=== PATIENT | female | born 1960 | race Caucasian/White ===

== ENCOUNTER 2021-09-14 06:37 | Day surgery (SDC) | payer OTHER ==
[~2021-09-14] VITALS: Ht 172.7 cm; Wt 125.8 kg
[2021-09-14] MEDS ORDERED: METF500 (07:12)
[2021-09-14] MEDS ORDERED: OZEMPIC0.25 MG/0. (07:12)
[2021-09-14] MEDS ORDERED: TOUJEO SOL300 UNIT/2 (07:12)
[2021-09-14] MEDS ORDERED: LEVSOD100 (07:13)
[2021-09-14] MEDS ORDERED: Crestor20 MG (07:13)
[2021-09-14] MEDS ORDERED: Prinivil10 MG (07:13)
--- NOTE | 2021-09-14 08:26 | NUR ---
09/14/21 0812 Richelle Zapata ([place] 0825: SCOPE OUT, SWITCHED TO [facility]
== END 2021-09-14 09:37 | disposition home or self-care (01) ==
LOC: ORSCSDS 06:37
PROVIDERS: Student in an Organized Health Care Education/Training Program
PROC: 0DBL8ZX Excision of Transverse Colon, Via Natural or Artificial Opening Endoscopic, Diagnostic (ICD-10-PCS; principal; 2021-09-14 08:00)
PROC: 0DBH8ZX Excision of Cecum, Via Natural or Artificial Opening Endoscopic, Diagnostic (ICD-10-PCS; principal; 2021-09-14 08:00)
PROC: 0DBK8ZX Excision of Ascending Colon, Via Natural or Artificial Opening Endoscopic, Diagnostic (ICD-10-PCS; principal; 2021-09-14 08:00)
PROC: 0DBN8ZX Excision of Sigmoid Colon, Via Natural or Artificial Opening Endoscopic, Diagnostic (ICD-10-PCS; principal; 2021-09-14 08:00)
DX: Z12.11 Encounter for screening for malignant neoplasm of colon (principal); D12.0 Benign neoplasm of cecum; D12.2 Benign neoplasm of ascending colon; D12.3 Benign neoplasm of transverse colon; K63.89 Other specified diseases of intestine; K57.30 Diverticulosis of large intestine without perforation or abscess without bleeding; K64.4 Residual hemorrhoidal skin tags; K64.8 Other hemorrhoids; E11.9 Type 2 diabetes mellitus without complications; I10 Essential (primary) hypertension; E78.5 Hyperlipidemia, unspecified; E03.9 Hypothyroidism, unspecified; E66.01 Morbid (severe) obesity due to excess calories; Z68.41 Body mass index [BMI] 40.0-44.9, adult; Z79.4 Long term (current) use of insulin; Z79.899 Other long term (current) drug therapy; F17.210 Nicotine dependence, cigarettes, uncomplicated
CPT/HCPCS: 82947; 88305; J2704; J7120

== ENCOUNTER 2021-11-22 06:18 | Day surgery (SDC) | payer OTHER ==
[~2021-11-22] VITALS: Ht 172.7 cm; Wt 125.0 kg
[~2021-11-22 06:18] MED LIST: Crestor20 MG PO; LEVSOD100 PO; METF500 PO; OZEMPIC0.25 MG/0. SC; Prinivil10 MG PO; TOUJEO SOL300 UNIT/2 SC
--- NOTE | 2021-11-22 06:36 | NUR ---
PT ADMITTED TO [facility]. AGREES WITH PLANNED SURGERY. LUNG SOUNDS CLEAR.
--- NOTE | 2021-11-22 09:55 | NUR ---
Discharge instructions reviewed with patient. Patient verbalizes understanding. Copy given to patient to take home. Patient States Post-Procedure ride home has been arranged. Discharged via wheelchair to private car for ride home.
--- NOTE | 2021-11-24 12:18 | NUR ---
11/24/21 1218 Estephania Leyva VERIFICATIONS: EDIT CHART.
== END 2021-11-22 09:55 | disposition home or self-care (01) ==
LOC: ORSCMMR 06:18 → ORD 07:30 → ORSCMMR 09:55
PROVIDERS: Surgery
PROC: 0FT44ZZ Resection of Gallbladder, Percutaneous Endoscopic Approach (ICD-10-PCS; principal; 2021-11-22 07:30)
PROC: BF031ZZ Plain Radiography of Gallbladder and Bile Ducts using Low Osmolar Contrast (ICD-10-PCS; principal; 2021-11-22 07:30)
DX: K80.10 Calculus of gallbladder with chronic cholecystitis without obstruction (principal); I10 Essential (primary) hypertension; G47.33 Obstructive sleep apnea (adult) (pediatric); F17.210 Nicotine dependence, cigarettes, uncomplicated; K21.9 Gastro-esophageal reflux disease without esophagitis; E03.9 Hypothyroidism, unspecified; E11.9 Type 2 diabetes mellitus without complications; Z79.4 Long term (current) use of insulin; Z79.899 Other long term (current) drug therapy
CPT/HCPCS: 74300; 82947; 88304; A9270; C1729; J0171; J0330; J0690; J1100; J1885; J2370; J2405; J2704; J3010; J7120

== ENCOUNTER 2024-11-05 11:06 | Day surgery (SDC) | payer OTHER ==
[~2024-11-05] VITALS: Ht 172.7 cm; Wt 136.9 kg
[~2024-11-05 11:06] MED LIST changes: +Lactated Ringer's 1,000 ML IV ONE; +OMEP20ER PO; +PIOG15 PO; +propofoL 50 ML IV ONE
[2024-11-05] MEDS ORDERED: LINZESS145 MCG (11:24)
[2024-11-05] MEDS ORDERED: EZETIMIBE10 M6 (11:24)
[2024-11-05] MEDS ORDERED: BUPROPION XL150 M1 (11:24)
[2024-11-05] MEDS ORDERED: DULO30 (11:25)
[2024-11-05] MEDS ORDERED: Lactated Ringer's 1,000 ML IV ONE (11:54)
[2024-11-05] MEDS ORDERED: propofoL 50 ML IV ONE (12:15)
[2024-11-05 12:48] VITALS: BP 112/62
== END 2024-11-05 12:49 | disposition home or self-care (01) ==
LOC: ORSCSDS 11:06
PROVIDERS: Specialist
PROC: 0DJD8ZZ Inspection of Lower Intestinal Tract, Via Natural or Artificial Opening Endoscopic (ICD-10-PCS; principal; 2024-11-05 12:30)
DX: Z12.11 Encounter for screening for malignant neoplasm of colon (principal); Z86.0101 Personal history of adenomatous and serrated colon polyps; K59.09 Other constipation; K57.30 Diverticulosis of large intestine without perforation or abscess without bleeding; K64.8 Other hemorrhoids; E11.9 Type 2 diabetes mellitus without complications; E07.9 Disorder of thyroid, unspecified; I10 Essential (primary) hypertension; E78.5 Hyperlipidemia, unspecified; E66.9 Obesity, unspecified; F17.200 Nicotine dependence, unspecified, uncomplicated; Z68.42 Body mass index [BMI] 45.0-49.9, adult; Z79.85 Long-term (current) use of injectable non-insulin antidiabetic drugs; Z79.84 Long term (current) use of oral hypoglycemic drugs; Z79.899 Other long term (current) drug therapy
CPT/HCPCS: 82947; J2704; J7120

== ENCOUNTER 2025-04-29 06:08 | Day surgery (SDC) | payer OTHER ==
[~2025-04-29] VITALS: Ht 172.7 cm; Wt 149.2 kg
[~2025-04-29 06:08] MED LIST changes: +BUPROPION XL150 M1; +Balanced Salt Epinephrine Irrigation Solution 500 mL IR SCH; +DULO30; +EZETIMIBE10 M6; +LINZESS145 MCG; -Lactated Ringer's 1,000 ML IV ONE; +Moxifloxacin HCL 0.5 MG/0.1 ML 0.4MLSYR RIGHTEYE SCH; +Ondansetron 4 MG SoluTab MM PRN; +PHENYLEPHRINE\\TROPICAMIDE\\TETRACAINE OPHTHALMIC DILATING SOLN RIGHTEYE PRN; +Povidone-Iodine 450 DROP/30 ML Solution RIGHTEYE SCH; -propofoL 50 ML IV ONE
[2025-04-29] MEDS ORDERED: Tetracaine HCl/Pf 0.5% Opth Soln 4 ml ONE (06:09)
[2025-04-29] MEDS ORDERED: Povidone-Iodine 450 DROP/30 ML Solution ONE (06:10)
--- NOTE | 2025-04-29 06:41 | NUR ---
04/29/25 0641 Criss Antunez 0638: INITIAL ANXIETY 01/02 PER PATIENT REPORT 0640: 10 MG PO VALIUM GIVEN PER ORDERS. PULSE OXIMETER ON FINGER. CALL LIGHT IN HAND.
[2025-04-29] MEDS ORDERED: ROSUVASTATIN CA40 MG PO (06:45)
[2025-04-29] MEDS ORDERED: GLUCOPHAGE1000 M1 PO (06:45)
[2025-04-29] MEDS ORDERED: EZET10 PO (06:46)
[2025-04-29] MEDS ORDERED: DULO30 PO (06:46)
[2025-04-29] MEDS ORDERED: MOUNJARO7.5 MG/0.5 SQ (06:47)
[2025-04-29] MEDS ORDERED: INSULIN GL300 UNIT/1 SQ (06:48)
[2025-04-29] MEDS ORDERED: EUTHYROX125 MC1 PO (06:49)
[2025-04-29] MEDS ORDERED: ACTOS30 MG PO (06:50)
[2025-04-29] MEDS ORDERED: ALBUTEROL INHALER (06:52)
--- NOTE | 2025-04-29 07:36 | NUR ---
04/29/25 0736 Jessica Bermudez 0730 BP: 133/51 HR:61 O2%:100 RESP:16
[2025-04-29 07:49] VITALS: BP 127/74
--- NOTE | 2025-04-29 07:53 | NUR ---
04/29/25 0753 Angela Madsen INSTRUCTED TO PULL CAR UP TO [employer] HELPER AREA
== END 2025-04-29 08:04 | disposition home or self-care (01) ==
LOC: ORSCSDS 06:08
PROVIDERS: Student in an Organized Health Care Education/Training Program
PROC: 08RJ3JZ Replacement of Right Lens with Synthetic Substitute, Percutaneous Approach (ICD-10-PCS; principal; 2025-04-29 07:30)
DX: H25.813 Combined forms of age-related cataract, bilateral (principal); E11.8 Type 2 diabetes mellitus with unspecified complications; I10 Essential (primary) hypertension; E78.2 Mixed hyperlipidemia; E03.9 Hypothyroidism, unspecified; Z79.4 Long term (current) use of insulin; Z79.899 Other long term (current) drug therapy; Z79.85 Long-term (current) use of injectable non-insulin antidiabetic drugs; Z87.891 Personal history of nicotine dependence
CPT/HCPCS: A9270; J2003; V2632